=== PATIENT | male | born 1970 | race Caucasian/White ===

== ENCOUNTER 2016-10-11 11:11 | Inpatient (IN) | payer OTHER ==
[2016-10-11 12:03] VITALS: BMI 25.8
--- NOTE | 2016-10-11 14:02 | HP ---
COWS - Scale Resting Pulse: 0= [place] 80 or Below Sweatin=Flushed/Facial Moisture Restless Observation: 3= Extraneous Movement Pupil Size: 2= Moderately Dilated Bone or Joint Aches: 2= Severe Diffuse Aches Runny Nose/ Eye Tearin= Runny Nose/Eyes GI Upset > 30mins: 3= Vomiting/Diarrhea Tremor Observation: 2= Slight Tremor Visible Yawning Observation: 2= >3x During Session Anxiety or Irritability: 2=Irritable/Anxious Goose Flesh Skin: 0=Smooth Skin COWS Score: 20 CIWA Score - CIWA Score Nausea/Vomitin Muscle Tremors: 3 Anxiety: 3 Agitation: 3 Paroxysmal Sweats: 2 Orientation: 0-Oriented Tacttile Disturbances: 2-Mild Itch/Numbness/Burn Auditory Disturbances: 2-Mild Harshness/Frighten Visual Disturbances: 2-Mild Sensitivity Headache: 2-Mild CIWA-Ar Total Score: 22 Admission ROS BHS - HPI Chief Complaint: i wanted to clean myself from drugs and alcohol Allergies/Adverse Reactions: Allergies Allergy/AdvReac Type Severity Reaction Status Date / Time No Known Allergies Allergy Verified 08/02/15 13:51 History of Present Illness: this 46 years old male with heroin and alcohol dependence,withdrawal symptom, last detox 08/02/15 to 08/04/15 [facility] not completed syncope nicotine dependence longest period of sobriety 2 years Exam Limitations: No Limitations - Ebola screening Have you traveled outside of the country in the last 21 days: No Have you had contact with anyone from an Ebola affected area: No Have you been sick,other than usual withdrawal symptoms: No - Review of Systems Constitutional: Chills, Diaphoresis, Loss of Appetite, Malaise, Night Sweats, Changes in sleep, Weakness, Unintentional Wgt. Loss EENT: reports: Tearing, Nose Congestion Respiratory: reports: No Symptoms reported Cardiac: reports: No Symptoms Reported GI: reports: Diarrhea, Nausea, Vomiting, Abdominal cramping : reports: No Symptoms Reported Musculoskeletal: reports: Back Pain, Joint Pain, Muscle Pain, Joint Stiffness Integumentary: reports: Dryness Neuro: reports: Headache, Tremors Endocrine: reports: No Symptoms Reported Hematology: reports: No Symptoms Reported Psychiatric: reports: No Sypmtoms Reported, Judgement Intact, Mood/Affect Appropiate, Orientated x3 Patient History - Patient Medical History Hx Anemia: No Hx Asthma: No Hx Chronic Obstructive Pulmonary Disease (COPD): No Hx Cancer: No Hx Cardiac Disorders: No Hx Congestive Heart Failure: No Hx Hypertension: No Hx Hypercholesterolemia: No Hx Pacemaker: No HX Cerebrovascular Accident: No Hx Seizures: No Hx Dementia: No Hx Diabetes: No Hx Gastrointestinal Disorders: No Hx Liver Disease: No Hx Genitourinary Disorders: No Hx Sexually Transmitted Disorders: No Hx Renal Disease (ESRD): No Hx Thyroid Disease: No Hx Human Immunodeficiency Virus (HIV): No (negative 04/15 last) Hx Hepatitis C: No (negative) Hx Depression: No Hx Suicide Attempt: No (denies) Hx Bipolar Disorder: No (denies) Hx Schizophrenia: No Other Medical History: no suicidal,no homicidal - Patient Surgical History Past Surgical History: No Hx Neurologic Surgery: No Hx Cataract Extraction: No Hx Cardiac Surgery: No Hx Lung Surgery: No Hx Breast Surgery: No Hx Breast Biopsy: No Hx Abdominal Surgery: No Hx Appendectomy: No Hx Cholecystectomy: No Hx Genitourinary Surgery: No Hx Section: No Hx Orthopedic Surgery: No Hx Hysterectomy: No Anesthesia Reaction: No - PPD History Previous Implant?: Yes Documented Results: Negative w/o proof Implanted On Prior [facility] Admission?: Yes Date: 08/04/15 PPD to be Administered?: Yes - Smoking Cessation Smoking history: Current every day smoker Have you smoked in the past 12 months: Yes Aproximately how many cigarettes per day: 7 Cigars Per Day: 0 Hx Chewing Tobacco Use: No Initiated information on smoking cessation: Yes 'Breaking Loose' booklet given: 10/11/16 - Substance & Tx. History Hx Alcohol Use: Yes Hx Substance Use: Yes Substance Use Type: Alcohol, Heroin Hx Substance Use Treatment: Yes ([facility] to 08/04/15) Family Disease History - Family Disease History Family Disease History: Diabetes: Father (alive/dialysis), Heart Disease: Father Admission Physical Exam BHS - Vital Signs Vital Signs: Vital Signs - 24 hr 10/11/16 12:01 Temperature 97.2 F L Pulse Rate 71 Respiratory 20 Rate Blood Pressure 134/90 - Physical General Appearance: Yes: Moderate Distress, Tremorous, Irritable, Sweating, Anxious HEENTM: Yes: Hearing grossly Normal, Normal ENT Inspection, JAYSON, Pharynx Normal Respiratory: Yes: Lungs Clear, Normal Breath Sounds, No Respiratory Distress Neck: Yes: Within Normal Limits Breast: Yes: Within Normal Limits Cardiology: Yes: Regular Rhythm, S1, S2, Tachycardia Abdominal: Yes: Within Normal Limits, Normal Bowel Sounds, Non Tender, Flat, Soft Genitourinary: Yes: Within Normal Limits Back: Yes: Within Normal Limits, Normal Inspection, Muscle Spasm Musculoskeletal: Yes: full range of Motion, Back pain, Joint Stiffness, Muscle Pain Extremities: Yes: Tremors Neurological: Yes: Within Normal Limits, 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, Fully Oriented, Alert, Motor Strength 5/5 Integumentary: Yes: Dry Lymphatic: Yes: Within Normal Limits - Diagnostic (1) Alcohol dependence with uncomplicated withdrawal Current Visit: No Status: Acute (2) Opioid dependence with withdrawal Current Visit: No Status: Acute (3) Nicotine dependence Current Visit: No Status: Chronic (4) Hypertension Current Visit: Yes Status: Acute Cleared for Admission [facility] - Detox or Rehab [facility] Level of Care: Medically Managed Detox Regimen/Protocol: Methadone/Librium S Breath Alcohol Content Breath Alcohol Content: 0 Urine Drug Screen - Results Drug Screen Negative: No Urine Drug Screen Results: OPI-Opiates, MTD-Methadone
[2016-10-11] MEDS ORDERED: IBUPROFEN 400 MG TABLET (FP) PO PRN (14:13)
[2016-10-11] MEDS ORDERED: chlordiazePOXIDE HCL 25 MG CAPSULE PO PRN (14:13)
[2016-10-11] MEDS ORDERED: MAGNESIUM CITRATE 300 ML BOTTLE PO PRN (14:13)
[2016-10-11] MEDS ORDERED: ACETAMINOPHEN 325 MG TABLET (FP) PO PRN (14:13)
[2016-10-11] MEDS ORDERED: MAG HYDROX/AL HYDROX/SIMETH 30 ML UNIT-DOSE CUP PO PRN (14:13)
[2016-10-11] MEDS ORDERED: guaiFENesin/D-METHORPHAN HB 10 ML UNIT-DOSE CUPS PO PRN (14:13)
[2016-10-11] MEDS ORDERED: LOPERAMIDE HCL 2 MG CAPSULE PO PRN (14:13)
[2016-10-11] MEDS ORDERED: MENTHOL/PHENOL 1 EACH UD MM PRN (14:13)
[2016-10-11] MEDS ORDERED: hydrOXYzine PAMOATE 50 MG CAPSULE (FP) PO PRN (14:13)
[2016-10-11] MEDS ORDERED: MAGNESIUM HYDROX 2400MG/30ML ORAL SUSPENSION 30 ML CUP PO PRN (14:13)
[2016-10-11] MEDS ORDERED: diazePAM 5 MG TABLET PO PRN (14:17)
[2016-10-11] MEDS ORDERED: chlordiazePOXIDE HCL 25 MG CAPSULE PO ONE (14:22)
[2016-10-11] MEDS ORDERED: METHADONE HCL 10 MG TABLET (FOR DETOX USE ONLY) PO ONE ×2 (14:56→23:00)
[2016-10-11] MEDS: NICOTINE 14 MG/24 HOURS TOPICAL PATCH TD SCH (15:08)
[2016-10-11 17:32] LABS: URINE APPEARANCE CLEAR; URINE BILIRUBIN NEGATIVE (NEGATIVE); URINE BLOOD NEGATIVE (NEGATIVE); URINE COLOR YELLOW; URINE GLUCOSE (UA) NEGATIVE (NEGATIVE); URINE KETONE NEGATIVE (NEGATIVE); URINE LEUK ESTERASE NEGATIVE (NEGATIVE); URINE NITRITE NEGATIVE (NEGATIVE); URINE PROTEIN NEGATIVE (NEGATIVE); URINE UROBILINOGEN NEGATIVE E.U./dl (0.2-1.0)
[2016-10-11] MEDS: chlordiazePOXIDE HCL 25 MG CAPSULE PO SCH ×2 (18:02→22:35)
[2016-10-11] MEDS: THIAMINE HCL 100 MG TABLET (FP) PO SCH (22:35)
[2016-10-11] MEDS: diphenhydrAMINE HCL 50 MG CAPSULE PO PRN (22:36)
[2016-10-12] MEDS: chlordiazePOXIDE HCL 25 MG CAPSULE PO SCH ×4 (07:15→22:17)
[2016-10-12 09:18] LABS: HIV 1 & 2 AB NEGATIVE; HIV 1 AGp24 NEGATIVE
[2016-10-12] MEDS ORDERED: METHADONE HCL 10 MG TABLET (FOR DETOX USE ONLY) PO ONE (10:00)
--- NOTE | 2016-10-12 10:09 | EKG ---
Test Reason : Blood Pressure : / mmHG Vent. Rate : 059 BPM Atrial Rate : 059 BPM P-R Int : 122 ms QRS Dur : 100 ms QT Int : 416 ms P-R-T Axes : 004 042 037 degrees QTc Int : 411 ms SINUS BRADYCARDIA NO PREVIOUS ECGS AVAILABLE Confirmed by FAUSTO ALEX MD ([id number]) on 10/12/2016 10:09:26 AM Referred By: Confirmed By:FAUSTO ALEX MD
[2016-10-12 10:12] LABS: ALBUMIN 3.9 g/dl (3.4-5.0); CALCIUM 8.6 mg/dL (8.5-10.1)
[2016-10-12 10:17] LABS: ALK PHOS 69 U/L (45-117); ANION GAP 6 (8-16); BILIRUBIN,TOTAL 0.4 mg/dL (0.2-1.0); CO2 28 mmol/L (21-32); COCKROFT - GAULT 122.13; CREATININE 0.8 mg/dL (0.7-1.3); GLUCOSE,RANDOM 102 mg/dL (74-106); SGOT/AST 10 U/L (15-37); SGPT/ALT 23 U/L (12-78)
[2016-10-12 10:19] LABS: MCH 28.6 pg (25.7-33.7); MCHC 33.4 g/dl (32.0-35.9); MEAN CELL VOLUME 85.7 fl (80-96); MEAN PLT VOLUME 8.6 fl (7.5-11.1); PLATELET COUNT 252 K/MM3 (134-434); RDW 14.2 % (11.9-15.9)
[2016-10-12] MEDS: PRENATAL VITAMINS W/ FOLIC ACID TABLET (FP) PO SCH (10:22)
[2016-10-12] MEDS: NICOTINE 14 MG/24 HOURS TOPICAL PATCH TD SCH (10:25)
[2016-10-12] MEDS ORDERED: INFLUENZA VACCINE 45 MCG/0.5 ML (MDV 16-17) IM ONE (12:00)
--- NOTE | 2016-10-12 13:01 | PN ---
[facility] CIWA - CIWA Score Nausea/Vomitin-Mild Nausea/No Vomiting Muscle Tremors: 4-Moderate,w/Arms Extend Anxiety: 4-Mod. Anxious/Guarded Agitation: 3 Paroxysmal Sweats: 2 Orientation: 0-Oriented Tacttile Disturbances: 3-Moderate Itch/Numb/Burn Auditory Disturbances: 0-None Visual Disturbances: 0-None Headache: 0-None Present CIWA-Ar Total Score: 17 S COWS - Scale Resting Pulse: 0= [place] 80 or Below Sweatin= Chills/Flushing Restless Observation: 1= Difficult to Sit Still Pupil Size: 0= Normal to Room Light Bone or Joint Aches: 1= Mild Discomfort Runny Nose/ Eye Tearin= Runny Nose/Eyes GI Upset > 30mins: 0= None Tremor Observation of Outstretched Hands: 2= Slight Tremor Visible Yawning Observation: 1= 1-2x During Session Anxiety or Irritability: 2=Irritable/Anxious Goose Flesh Skin: 3=Piloerection COWS Score: 13 [facility] Progress Note (SOAP) Subjective: Tremors, Fatigue, Anxious. Objective: PT. A & O X 3. 10/12/16 13:00 Vital Signs Temperature 96.8 F L 10/12/16 11:23 Pulse Rate 72 10/12/16 11:23 Respiratory Rate 18 10/12/16 11:23 Blood Pressure 131/81 10/12/16 11:23 O2 Sat by Pulse Oximetry (%) Laboratory Last Values WBC 13.0 K/mm3 (4.0-10.0) H D 10/12/16 06:00 RBC 4.53 M/mm3 (4.00-5.60) 10/12/16 06:00 Hgb 13.0 GM/dL (11.7-16.9) 10/12/16 06:00 Hct 38.8 % (35.4-49) 10/12/16 06:00 MCV 85.7 fl (80-96) 10/12/16 06:00 MCHC 33.4 g/dl (32.0-35.9) 10/12/16 06:00 RDW 14.2 % (11.9-15.9) 10/12/16 06:00 Plt Count 252 K/MM3 (134-434) D 10/12/16 06:00 MPV 8.6 fl (7.5-11.1) 10/12/16 06:00 Sodium 139 mmol/L (136-145) 10/12/16 06:00 Potassium 4.5 mmol/L (3.5-5.1) 10/12/16 06:00 Chloride 105 mmol/L (98-107) 10/12/16 06:00 Carbon Dioxide 28 mmol/L (21-32) 10/12/16 06:00 Anion Gap 6 (8-16) L 10/12/16 06:00 BUN 24 mg/dL (7-18) H D 10/12/16 06:00 Creatinine 0.8 mg/dL (0.7-1.3) 10/12/16 06:00 Creat Clearance w eGFR > 60 (>60) 10/12/16 06:00 Random Glucose 102 mg/dL (74-106) 10/12/16 06:00 Calcium 8.6 mg/dL (8.5-10.1) 10/12/16 06:00 Total Bilirubin 0.4 mg/dL (0.2-1.0) 10/12/16 06:00 AST 10 U/L (15-37) L D 10/12/16 06:00 ALT 23 U/L (12-78) 10/12/16 06:00 Alkaline Phosphatase 69 U/L (45-117) 10/12/16 06:00 Total Protein 7.0 g/dl (6.4-8.2) 10/12/16 06:00 Albumin 3.9 g/dl (3.4-5.0) 10/12/16 06:00 Urine Color Yellow 10/11/16 15:00 Urine Appearance Clear 10/11/16 15:00 Urine pH 6.0 (5.0-8.0) 10/11/16 15:00 Ur Specific [place] 1.025 (1.001-1.035) 10/11/16 15:00 Urine Protein Negative (NEGATIVE) 10/11/16 15:00 Urine Glucose (UA) Negative (NEGATIVE) 10/11/16 15:00 Urine Ketones Negative (NEGATIVE) 10/11/16 15:00 Urine Blood Negative (NEGATIVE) 10/11/16 15:00 Urine Nitrite Negative (NEGATIVE) 10/11/16 15:00 Urine Bilirubin Negative (NEGATIVE) 10/11/16 15:00 Urine Urobilinogen Negative E.U./dl (0.2-1.0) 10/11/16 15:00 Ur Leukocyte Esterase Negative (NEGATIVE) 10/11/16 15:00 RPR Titer Nonreactive (NONREACTIVE) 10/12/16 06:00 HIV 1&2 Antibody Screen Negative 10/11/16 13:00 HIV P24 Antigen Negative 10/11/16 13:00 LABS NOTED. Assessment: 10/12/16 13:01 WITHDRAWAL SYMPTOMS. Plan: CONTINUE DETOX. ADVISED PATIENT TO FOLLOW-UP WITH MAIL AGENT / REHAB MEDICAL PROVIDER AFTER DISCHARGE FROM DETOX FOR ABNORMAL ADMISSION LAB VALUES.
[2016-10-12] MEDS: P-EPHED 60MG/TRIPROLIDI 2.5MG TABLET PO PRN (18:10)
[2016-10-12] MEDS: THIAMINE HCL 100 MG TABLET (FP) PO SCH (22:17)
[2016-10-12] MEDS: diphenhydrAMINE HCL 50 MG CAPSULE PO PRN (22:17)
[2016-10-13] MEDS: chlordiazePOXIDE HCL 25 MG CAPSULE PO SCH ×2 (06:34→10:35)
[2016-10-13] MEDS ORDERED: METHADONE HCL 5 MG TABLET (FOR DETOX USE ONLY) PO ONE (10:00)
[2016-10-13 10:30] VITALS: BP 154/92; PULSE 73; TEMP 98.4
[2016-10-13] MEDS: PRENATAL VITAMINS W/ FOLIC ACID TABLET (FP) PO SCH (10:35)
[2016-10-13] MEDS: NICOTINE 14 MG/24 HOURS TOPICAL PATCH TD SCH (10:35)
[2016-10-13] MEDS: P-EPHED 60MG/TRIPROLIDI 2.5MG TABLET PO PRN (10:37)
[2016-10-13] MEDS ORDERED: CYCLOBENZAPRINE HCL 10 MG TABLET (FP) PO PRN (10:52)
--- NOTE | 2016-10-13 11:00 | PN ---
[facility] CIWA - CIWA Score Nausea/Vomitin Muscle Tremors: 3 Anxiety: 3 Agitation: 3 Paroxysmal Sweats: 1-Minimal Palms Moist Orientation: 0-Oriented Tacttile Disturbances: 1-Very Mild Itch/Numbness Auditory Disturbances: 1-Very Mild Visual Disturbances: 1-Very Mild Sensitivity Headache: 2-Mild CIWA-Ar Total Score: 18 BHS COWS - Scale Resting Pulse: 0= [place] 80 or Below Sweatin=Flushed/Facial Moisture Restless Observation: 3= Extraneous Movement Pupil Size: 1= Pupils >than Normal Bone or Joint Aches: 2= Severe Diffuse Aches Runny Nose/ Eye Tearin= Runny Nose/Eyes GI Upset > 30mins: 3= Vomiting/Diarrhea Tremor Observation of Outstretched Hands: 2= Slight Tremor Visible Yawning Observation: 1= 1-2x During Session Anxiety or Irritability: 2=Irritable/Anxious Goose Flesh Skin: 0=Smooth Skin COWS Score: 18 [facility] Progress Note (SOAP) Subjective: ALERT,IRRITABLE,ANXIOUS,INTERRUPTED SLEEP,TREMOR,PAIN IN THE BODY AND BACK Objective: 10/13/16 10:58 Vital Signs Temperature 98.4 F 10/13/16 10:29 Pulse Rate 73 10/13/16 10:29 Respiratory Rate 18 10/13/16 10:29 Blood Pressure 154/92 10/13/16 10:29 O2 Sat by Pulse Oximetry (%) 10/13/16 10:59 Laboratory Last Values WBC 13.0 K/mm3 (4.0-10.0) H D 10/12/16 06:00 RBC 4.53 M/mm3 (4.00-5.60) 10/12/16 06:00 Hgb 13.0 GM/dL (11.7-16.9) 10/12/16 06:00 Hct 38.8 % (35.4-49) 10/12/16 06:00 MCV 85.7 fl (80-96) 10/12/16 06:00 MCHC 33.4 g/dl (32.0-35.9) 10/12/16 06:00 RDW 14.2 % (11.9-15.9) 10/12/16 06:00 Plt Count 252 K/MM3 (134-434) D 10/12/16 06:00 MPV 8.6 fl (7.5-11.1) 10/12/16 06:00 Sodium 139 mmol/L (136-145) 10/12/16 06:00 Potassium 4.5 mmol/L (3.5-5.1) 10/12/16 06:00 Chloride 105 mmol/L (98-107) 10/12/16 06:00 Carbon Dioxide 28 mmol/L (21-32) 10/12/16 06:00 Anion Gap 6 (8-16) L 10/12/16 06:00 BUN 24 mg/dL (7-18) H D 10/12/16 06:00 Creatinine 0.8 mg/dL (0.7-1.3) 10/12/16 06:00 Creat Clearance w eGFR > 60 (>60) 10/12/16 06:00 Random Glucose 102 mg/dL (74-106) 10/12/16 06:00 Calcium 8.6 mg/dL (8.5-10.1) 10/12/16 06:00 Total Bilirubin 0.4 mg/dL (0.2-1.0) 10/12/16 06:00 AST 10 U/L (15-37) L D 10/12/16 06:00 ALT 23 U/L (12-78) 10/12/16 06:00 Alkaline Phosphatase 69 U/L (45-117) 10/12/16 06:00 Total Protein 7.0 g/dl (6.4-8.2) 10/12/16 06:00 Albumin 3.9 g/dl (3.4-5.0) 10/12/16 06:00 Urine Color Yellow 10/11/16 15:00 Urine Appearance Clear 10/11/16 15:00 Urine pH 6.0 (5.0-8.0) 10/11/16 15:00 Ur Specific [place] 1.025 (1.001-1.035) 10/11/16 15:00 Urine Protein Negative (NEGATIVE) 10/11/16 15:00 Urine Glucose (UA) Negative (NEGATIVE) 10/11/16 15:00 Urine Ketones Negative (NEGATIVE) 10/11/16 15:00 Urine Blood Negative (NEGATIVE) 10/11/16 15:00 Urine Nitrite Negative (NEGATIVE) 10/11/16 15:00 Urine Bilirubin Negative (NEGATIVE) 10/11/16 15:00 Urine Urobilinogen Negative E.U./dl (0.2-1.0) 10/11/16 15:00 Ur Leukocyte Esterase Negative (NEGATIVE) 10/11/16 15:00 RPR Titer Nonreactive (NONREACTIVE) 10/12/16 06:00 HIV 1&2 Antibody Screen Negative 10/11/16 13:00 HIV P24 Antigen Negative 10/11/16 13:00 Assessment: 10/13/16 11:00 WITHDRAWAL SYMPTOM Plan: CONTINUE DETOX
--- NOTE | 2016-10-13 11:25 | DS ---
[facility] Detox Discharge Summary Admission Date: 10/11/16 Discharge Date: 10/13/16 - History Present History: Alcohol Dependence, Opioid Dependence Additional Comments: PATIENT DID NOT WANT TO COMPLETE TREATMENT,SIGNED RELEASE AMA,SEEN BY COUNSELOR Pertinent Past History: HYPERTENSION - Physical Exam Results Vital Signs: Vital Signs Temperature 98.4 F 10/13/16 10:29 Pulse Rate 73 10/13/16 10:29 Respiratory Rate 18 10/13/16 10:29 Blood Pressure 154/92 10/13/16 10:29 O2 Sat by Pulse Oximetry (%) Pertinent Admission Physical Exam Findings: WITHDRAWAL SYMPTOM - Medication Discharge Medications: Ambulatory Orders NK [No Known Home Medication] 04/21/15 - Diagnosis (1) Alcohol dependence with uncomplicated withdrawal Current Visit: No Status: Acute (2) Opioid dependence with withdrawal Current Visit: No Status: Acute (3) Nicotine dependence Current Visit: No Status: Chronic (4) Hypertension Current Visit: Yes Status: Acute (5) Bipolar disorder Current Visit: No Status: Acute - AMA Did Patient Leave Against Medical Advice: Yes
[2016-10-13] MEDS ORDERED: chlordiazePOXIDE 5 MG CAPSULE PO SCH (17:00)
[2016-10-13] MEDS ORDERED: cloNIDine HCL 0.1 MG TABLET PO SCH (22:00)
[2016-10-14] MEDS ORDERED: METHADONE HCL 5 MG TABLET (FOR DETOX USE ONLY) PO ONE (10:00)
[2016-10-14] MEDS ORDERED: chlordiazePOXIDE HCL 10 MG CAPSULE PO SCH (17:00)
[2016-10-15] MEDS ORDERED: METHADONE HCL 10 MG TABLET (FOR DETOX USE ONLY) PO ONE (10:00)
[2016-10-16] MEDS ORDERED: METHADONE HCL 5 MG TABLET (FOR DETOX USE ONLY) PO ONE (06:00)
== END 2016-10-13 12:10 | disposition left against medical advice (07) | DRG 770 ==
LOC: YASAS 11:11 → Y6N 14:17
PROVIDERS: ADMIT Internal Medicine Addiction Medicine; ATTEND Internal Medicine Addiction Medicine
PROC: HZ2ZZZZ Detoxification Services for Substance Abuse Treatment (ICD-10-PCS; principal; 2016-10-13)
DX: F11.23 Opioid dependence with withdrawal (principal); F10.230 Alcohol dependence with withdrawal, uncomplicated; F17.210 Nicotine dependence, cigarettes, uncomplicated; F31.9 Bipolar disorder, unspecified; I10 Essential (primary) hypertension
CPT/HCPCS: 36415; 80053; 81003; 85027; 86593; 87389; 93005; 93010